=== PATIENT | female | born 1990 | race Asian ===

== ENCOUNTER 2019-04-01 20:48 | Emergency (ER) | payer OTHER ==
[~2019-04-01] VITALS: Ht 160 cm; Wt 59.1 kg
[2019-04-01] MEDS ORDERED: CITA10TA68 PO (21:10)
[2019-04-01] MEDS ORDERED: LEVO1TAB PO (21:10)
[2019-04-01 23:20] VITALS: BP 112/77
[2019-04-01] MEDS ORDERED: IBUPROFEN 800 MG TABLET PO ONE (23:30)
== END 2019-04-01 23:33 | disposition home or self-care (01) ==
LOC: EMS 20:50
DX: S60.032A Contusion of left middle finger without damage to nail, initial encounter (principal); Z88.1 Allergy status to other antibiotic agents; Z79.899 Other long term (current) drug therapy; W23.0XXA Caught, crushed, jammed, or pinched between moving objects, initial encounter; Y93.89 Activity, other specified; Y92.89 Other specified places as the place of occurrence of the external cause; Y99.8 Other external cause status